=== PATIENT | female | born 1955 | race African-American/Black ===

== ENCOUNTER 2018-01-25 12:40 | Emergency (ER) | payer OTHER ==
[~2018-01-25] VITALS: Ht 165.1 cm; Wt 81.2 kg
[2018-01-25] MEDS ORDERED: ONDANSETRON HCL INJ 2 MG/ML VIAL IV STA (13:06)
[2018-01-25] MEDS ORDERED: SODIUM CHLORIDE 0.9% 1000ML 1,000 ML IV STA (13:06)
[2018-01-25] MEDS ORDERED: MORPHINE SULFATE 2 MG/ML SYR IV STA (13:06)
[2018-01-25 13:34] LABS: BASOPHILS # (AUTO) 0.1 (0.0-0.1); BASOPHILS % 0.4 % (0.0-1.0); EOSINOPHILS # (AUTO) 0.1 (0.0-0.4); EOSINOPHILS % 0.8 % (0.0-6.0); HEMATOCRIT 45.1 % (34.2-44.1); LYMPHOCYTES # (AUTO) 3.1 (1.0-3.2); LYMPHOCYTES % 25.7 % (18.0-39.1); MEAN CORPUSCULAR HEMOGLOBIN 28.1 pg (28-32); MEAN CORPUSCULAR HGB CONC 33.3 g/dL (31-35); MEAN CORPUSCULAR VOLUME 84.6 fL (81-99); MONOCYTES # (AUTO) 0.8 (0.2-0.8); MONOCYTES % 6.1 % (4.4-11.3); NEUTROPHILS # (AUTO) 8.2 (2.1-6.9); NEUTROPHILS % 66.8 % (38.7-80.0); PLATELET COUNT 184 x10e3/uL (140-360); RED BLOOD COUNT 5.33 x10e6/uL (3.6-5.1); RED CELL DISTRIBUTION WIDTH 13.1 % (11.7-14.4)
[2018-01-25 13:58] LABS: ALANINE AMINOTRANSFERASE 24 IU/L (0-55); ALBUMIN 3.6 g/dL (3.5-5.0); ALKALINE PHOSPHATASE 87 IU/L (40-150); ANION GAP 13.7 mmol/L (8-16); BLOOD UREA NITROGEN 14 mg/dL (7-26); BUN/CREATININE RATIO 21 (6-25); CALCIUM 9.2 mg/dL (8.4-10.2); CARBON DIOXIDE 23 mmol/L (22-29); CHLORIDE 107 mmol/L (98-107); CREATININE, SERUM 0.68 mg/dL (0.57-1.11); EST GLOMERULAR FILTRATION RATE > 60 ML/MIN (60-); GLUCOSE 96 mg/dL (74-118); LIPASE 22 U/L (8-78); MAGNESIUM 1.8 MG/DL (1.3-2.1); POTASSIUM 3.7 mmol/L (3.5-5.1); SODIUM 140 mmol/L (136-145)
[2018-01-25 14:20] LABS: THYROID STIMULATING HORMONE 0.971 uIU/mL (0.350-4.940)
[2018-01-25 14:50] LABS: BILIRUBIN,URINE NEGATIVE (NEGATIVE); CLARITY,URINE CLEAR (CLEAR); COLOR,URINE YELLOW (YELLOW); KETONES,URINE NEGATIVE (NEGATIVE); LEUKOCYTE ESTERASE ,URINE TRACE (NEGATIVE); NITRITE,URINE NEGATIVE (NEGATIVE); PROTEIN,URINE DIPSTICK NEGATIVE (NEGATIVE); URINE UROBILINOGEN 0.2 mg/dL (0.2 - 1)
[2018-01-25 14:51] LABS: PREGNANCY TEST, URINE NEGATIVE (NEGATIVE)
[2018-01-25 15:23] LABS: RBC,URINE 0-5 /HPF (0-5)
[2018-01-25 15:24] LABS: BACTERIA,URINE FEW /HPF; EPITHELIAL CELLS,URINE FEW /LPF
--- NOTE | 2018-01-25 15:24 | Diagnostic Imaging Report ---
EXAM: CT Abdomen and Pelvis WITH contrast INDICATION: \S\LOWER ABD PAIN \S\Y COMPARISON: None. TECHNIQUE: Abdomen and pelvis were scanned utilizing a multidetector helical scanner from the lung base to the pubic symphysis after administration of IV contrast. Coronal and sagittal reformations were obtained. Routine protocol was performed. Scan was performed when during portal venous phase. IV CONTRAST: 100 mL of Isovue-370 ORAL CONTRAST: Water COMPLICATIONS: None RADIATION DOSE: Total DLP: 610.39 mGy*cm Estimated effective dose: (DLP x 0.015 x size factor) mSv CTDIvol has been reviewed. It is below the limits set by the Radiation Protocol Committee (RPC). FINDINGS: LINES and TUBES: None. LOWER THORAX: Unremarkable. 0.4 cm posterior right base calcified granuloma. HEPATOBILIARY: No focal hepatic lesions. No biliary ductal dilation. GALLBLADDER: No radio-opaque stones or sludge. No wall thickening. SPLEEN: No splenomegaly. PANCREAS: 0.8 cm hypodensity in pancreatic head (series 2, image 37). No pancreatic ductal dilatation. ADRENALS: No adrenal nodules KIDNEYS/URETERS: Kidneys enhance symmetrically. No hydronephrosis. No cystic or solid mass lesions. No stones. GI TRACT: No abnormal distention, wall thickening, or evidence of bowel obstruction. Few scattered colonic diverticula without evidence of diverticulitis. Appendix is normal. PELVIC ORGANS/BLADDER: Bladder is unremarkable. Bulging of the left uterine body, likely a fibroid. LYMPH NODES: No lymphadenopathy. VESSELS: Unremarkable. PERITONEUM / RETROPERITONEUM: No free air or fluid. BONES: Lower lumbar spine facet arthropathy and degenerative changes with grade 1 retrolisthesis of L5 in relation to L4. Sclerotic focus in the right femoral intertrochanteric region is probably a bone island. SOFT TISSUES: Mild nonspecific subcutaneous periumbilical fat stranding. IMPRESSION: 1. No acute inflammatory process in the abdomen/pelvis. 2. Incidental 0.8 cm pancreatic head hypodensity. Recommend further evaluation with nonurgent pancreatic mass protocol MRI with MRCP series. 3. Myomatous uterus. Signed by: Dr. Sarwat Taylor MD on 01/25/2018 3:21 PM
[2018-01-25] MEDS ORDERED: CEFTRIAXONE SOD 1 GM VIAL IM ONE (15:45)
[2018-01-25 16:00] LABS: RBC MORPHOLOGY COMMENT NORMAL
[2018-01-25 16:01] LABS: PLATELET ESTIMATE ADEQUATE; PLATELET MORPHOLOGY COMMENT RARE EDTA CLUMPING
[2018-01-25 17:18] VITALS: BP 119/87
[2018-01-25] MEDS ORDERED: IOPAMIDOL 370 MG/ML 200 ML INFUS..BTL INJ ONE (19:29)
[2018-01-25] MEDS ORDERED: SODIUM CHLORIDE 0.9% 50ML 50 ML ONE (19:29)
== END 2018-01-25 17:30 | disposition home or self-care (01) ==
LOC: ER 12:40
DX: R10.30 Lower abdominal pain, unspecified (principal); N30.90 Cystitis, unspecified without hematuria; N83.9 Noninflammatory disorder of ovary, fallopian tube and broad ligament, unspecified
CPT/HCPCS: 36415; 74177; 80053; 81001; 81025; 83690; 83735; 84443; 85025; 87086; 99284; J0696; J2270; J2405; J7030; Q9967

== ENCOUNTER 2024-10-19 04:42 | Observation (INO) | payer MEDICARE, OTHER ==
[2024-10-19] VITALS (8 sets, daily range): BP systolic 117–124; BP diastolic 70–85; PULSE 98–108; RESP 19–24; TEMP 97.9–98.5; O2SAT 96–100
[~2024-10-19] VITALS: Ht 165.1 cm; Wt 91.2 kg
[2024-10-19] MEDS ORDERED: SODIUM CHLORIDE FLUSH 10 ML SYR IV PRN (05:00)
[2024-10-19 05:22] LABS: BASOPHILS # (AUTO) 0.1 (0.0-0.1); BASOPHILS % 0.5 % (0.0-1.0); EOSINOPHILS # (AUTO) 0.1 (0.0-0.4); HEMOGLOBIN 15.1 g/dL (12.0-16.0); LYMPHOCYTES # (AUTO) 3.1 (1.0-3.2); LYMPHOCYTES % 28.2 % (18.0-39.1); MEAN CORPUSCULAR HEMOGLOBIN 26.6 pg (28-32); MEAN CORPUSCULAR HGB CONC 30.2 g/dL (31-35); MEAN CORPUSCULAR VOLUME 88.2 fL (81-99); MONOCYTES # (AUTO) 0.4 (0.2-0.8); MONOCYTES % 3.9 % (4.4-11.3); NEUTROPHILS # (AUTO) 7.2 (2.1-6.9); NEUTROPHILS % 66.1 % (38.7-80.0); PLATELET COUNT 375 x10e3/uL (140-360); RED BLOOD COUNT 5.67 x10e6/uL (3.6-5.1); RED CELL DISTRIBUTION WIDTH 14.9 % (11.7-14.4); WHITE BLOOD COUNT 10.94 x10e3/uL (4.8-10.8)
[2024-10-19 05:36] LABS: ALBUMIN 3.7 g/dL (3.5-5.0); ALBUMIN/GLOBULIN RATIO 0.9 (0.8-2.0); BILIRUBIN,TOTAL 0.3 mg/dL (0.2-1.2); CALCIUM 9.5 mg/dL (8.4-10.2); CREATININE, SERUM 0.97 mg/dL (0.57-1.11); TOTAL PROTEIN 7.7 g/dL (6.5-8.1)
[2024-10-19 05:39] LABS: INFLUENZA A AG NEGATIVE (NEGATIVE)
[2024-10-19 05:40] LABS: CORONAVIRUS COVID-19 AG NEGATIVE (NEGATIVE); INFLUENZA B AG NEGATIVE (NEGATIVE)
[2024-10-19 05:42] LABS: TROPONIN I 0.004 ng/mL (0-0.300)
[2024-10-19] MEDS: SODIUM CHLORIDE 0.9% 1000ML 1,000 ML IV SCH (07:56)
[2024-10-19] MEDS: Morphine 4mg INJECTION 4 MG/ML INJ IV PRN (08:01)
[2024-10-19] MEDS: ONDANSETRON HCL INJ 2MG/ML 2ML 2 MG/ML VIAL IV PRN (08:01)
[2024-10-19] MEDS ORDERED: METFORMIN HCL500 MG PO (09:30)
[2024-10-19] MEDS ORDERED: TYLENOL325 MG PO (09:30)
[2024-10-19] MEDS ORDERED: CYCLOBENZAPRINE10 MG PO (09:30)
[2024-10-19] MEDS ORDERED: MIRTAZAPINE15 MG PO (09:30)
[2024-10-19] MEDS ORDERED: VENLAFAXINE HCL75 M2 PO (09:30)
[2024-10-19] MEDS ORDERED: ATORVASTATIN CA10 MG PO (09:30)
[2024-10-19] MEDS ORDERED: NEURONTIN300 MG PO (09:30)
[2024-10-19] MEDS ORDERED: MELATONIN 3 MG TAB PO PRN (11:15)
[2024-10-19] MEDS ORDERED: SIMETHICONE 80 MG CHEW PO PRN (11:15)
[2024-10-19] MEDS ORDERED: ACETAMINOPHEN 325 MG TAB PO PRN (11:15)
[2024-10-19] MEDS ORDERED: METOPROLOL TARTRATE INJ 1 MG/ML VIAL IV PRN (11:15)
[2024-10-19] MEDS ORDERED: ALBUTEROL/IPRATROPIUM 3 ML NEB NEB PRN (11:45)
[2024-10-19] MEDS: LORATADINE 10 MG TAB PO SCH (12:47)
[2024-10-19] MEDS: ASPIRIN 81 MG ENTERIC COATED PO SCH (12:47)
[2024-10-19] MEDS: GUAIFENESIN/DEXTROMETHORPHAN LIQD 5 ML UDC NG PRN (12:47)
[2024-10-19] MEDS: DOCUSATE SODIUM 100 MG CAP PO PRN (12:47)
[2024-10-19] MEDS: METHYLPREDNISOLONE SOD SUCC 40 MG/ML VIAL 1ML IV SCH (12:47)
[2024-10-19] MEDS: ALBUTEROL/IPRATROPIUM 3 ML NEB ONE (13:44)
[2024-10-19] MEDS: BENZONATATE 100 MG CAP PO SCH (14:31)
[2024-10-19] MEDS: GABAPENTIN 300 MG CAP PO SCH (14:32)
[2024-10-19 14:49] LABS: CREATINE KINASE 116 IU/L (29-168)
[2024-10-19 14:55] LABS: TROPONIN I < 0.001 ng/mL (0-0.300)
[2024-10-19] MEDS ORDERED: DEXTROSE 50% SYRINGE 50 ML IV PRN (17:00)
[2024-10-19] MEDS: FAMOTIDINE 20 MG TAB PO SCH (17:07)
[2024-10-19] MEDS: ENOXAPARIN SOD INJ 40 MG/0.4 ML SYR SC SCH (17:07)
[2024-10-19] MEDS: ATORVASTATIN 10 MG TAB PO SCH (21:44)
[2024-10-19] MEDS: INSULIN REGULAR, HUMAN 100 UNIT/1 ML SQ SCH (21:58)
[2024-10-19 23:30] LABS: CREATINE KINASE 128 IU/L (29-168)
[2024-10-19 23:37] LABS: TROPONIN I < 0.001 ng/mL (0-0.300)
[2024-10-20] VITALS (7 sets, daily range): BP systolic 118–155; BP diastolic 66–82; PULSE 92–114; RESP 18–20; TEMP 97.3–98.5; O2SAT 96–98
[2024-10-20 05:00] LABS: BASOPHILS % 0.1 % (0.0-1.0); HEMATOCRIT 41.3 % (34.2-44.1); LYMPHOCYTES # (AUTO) 1.6 (1.0-3.2); LYMPHOCYTES % 11.2 % (18.0-39.1); MEAN CORPUSCULAR HEMOGLOBIN 26.8 pg (28-32); MEAN CORPUSCULAR HGB CONC 31.5 g/dL (31-35); MONOCYTES # (AUTO) 0.2 (0.2-0.8); MONOCYTES % 1.5 % (4.4-11.3); NEUTROPHILS # (AUTO) 12.6 (2.1-6.9); NEUTROPHILS % 86.6 % (38.7-80.0); PLATELET COUNT 357 x10e3/uL (140-360); RED BLOOD COUNT 4.85 x10e6/uL (3.6-5.1); RED CELL DISTRIBUTION WIDTH 14.8 % (11.7-14.4); WHITE BLOOD COUNT 14.59 x10e3/uL (4.8-10.8)
[2024-10-20 05:08] LABS: MEAN CORPUSCULAR VOLUME 85.2 fL (81-99)
[2024-10-20 05:28] LABS: ALBUMIN 3.3 g/dL (3.5-5.0); ALBUMIN/GLOBULIN RATIO 0.9 (0.8-2.0); ANION GAP 14.2 mmol/L (8-16); BILIRUBIN,TOTAL 0.2 mg/dL (0.2-1.2); CALCIUM 9.6 mg/dL (8.4-10.2); CREATININE, SERUM 0.9 mg/dL (0.57-1.11); POTASSIUM 4.2 mmol/L (3.5-5.1); TOTAL PROTEIN 6.8 g/dL (6.5-8.1)
[2024-10-20] MEDS: VENLAFAXINE HCL 75 MG CAPCR PO SCH (08:22)
[2024-10-20] MEDS: SENNOSIDES 8.6 MG TAB PO SCH (08:22)
[2024-10-20] MEDS: ALBUTEROL/IPRATROPIUM 3 ML NEB NEB PRN (09:35)
[2024-10-20] MEDS ORDERED: FAMOTIDINE20 MG PO (12:16)
[2024-10-20] MEDS ORDERED: ASPIRIN EC81 MG PO (12:16)
[2024-10-20] MEDS ORDERED: LORATADINE10 MG PO (12:16)
[2024-10-20] MEDS ORDERED: BENZONATATE100 MG PO (12:16)
[2024-10-20] MEDS ORDERED: PREDNISONE20 MG PO (12:16)
[2024-10-20] MEDS ORDERED: ONDANSETRON HCL 4 MG ORAL DISINTEGRATING TAB PO PRN (13:45)
== END 2024-10-20 17:09 | disposition home or self-care (01) ==
LOC: ER 05:10 → ERHOLD 05:45 → MED/SURG2 08:49
PROVIDERS: ADMIT Internal Medicine; ATTEND Internal Medicine
DX: R07.89 Other chest pain (principal); J44.1 Chronic obstructive pulmonary disease with (acute) exacerbation; I10 Essential (primary) hypertension; E78.5 Hyperlipidemia, unspecified; E11.9 Type 2 diabetes mellitus without complications; E66.9 Obesity, unspecified; I34.0 Nonrheumatic mitral (valve) insufficiency; F17.210 Nicotine dependence, cigarettes, uncomplicated; Z79.82 Long term (current) use of aspirin; Z79.84 Long term (current) use of oral hypoglycemic drugs; Z79.899 Other long term (current) drug therapy; Z68.33 Body mass index [BMI] 33.0-33.9, adult
CPT/HCPCS: 36415 ×2; 71045; 80053 ×2; 82550; 82948 ×2; 83880; 84484; 85025 ×2; 87428; 93005; 93306; 94640; 94760; 94799 ×2; 99284; G0378 ×2; J1650 ×2; J2270; J2405; J2919 ×2; J7030